=== PATIENT | male | born 1980 | race Caucasian/White ===

== ENCOUNTER 2024-04-16 06:55 | Outpatient (CLI) | payer OTHER ==
[~2024-04-16 06:55] MED LIST: GADOTERATE MEGLUMINE 7.5 MMOL/15 ML VIAL IV ONE; LIDOcaine 1% 30ml preserv. free vial ONE; iohexol 300 MG/1 ML 50ml polymer ONE
[2024-04-16] MEDS ORDERED: LIDOcaine 1% (10mg/ml) 2ml vial ONE (07:02)
== END 2024-04-16 23:59 | disposition home or self-care (01) ==
LOC: RAD 06:55 → EDSTATUS 07:30 → RAD 23:59
PROVIDERS: ATTEND Pediatrics Sports Medicine
DX: M25.552 Pain in left hip (principal); M46.1 Sacroiliitis, not elsewhere classified; M16.12 Unilateral primary osteoarthritis, left hip; M16.11 Unilateral primary osteoarthritis, right hip; M76.02 Gluteal tendinitis, left hip
CPT/HCPCS: 27093; 73722; 77002; A9575; J3490; 73525; Q9967

== ENCOUNTER 2025-09-27 15:57 | Outpatient (CLI) | payer OTHER ==
--- NOTE | 2025-09-27 19:26 | RADIOLOGY REPORT ---
EXAM: MR MRI LUMBAR SPINE, ANGIO ARTHROGRAM (A) CLINICAL HISTORY: SPONDYLOSIS W/O MYELOPATHY OR RADICULOPATHY, LUMBAR REGION COMPARISON: None TECHNIQUE: MRI imaging of the lumbar was performed on a MRI imaging system without intravenous contrast. FINDINGS GENERAL Multilevel disc degeneration. Alignment: Grade 1 retrolisthesis of L3 on L4. Grade 1 retrolisthesis of L4 on L5. Grade 1 retrolisthesis of L5 on S1. Vertebrae: Vertebral body height is well maintained without evidence of a recent compression fracture. Conus: Conus medullaris terminates at the L1-L2 level. T12-L1: The disc configuration is normal. No spinal canal or neural foraminal stenosis. The facet joints are normal. L1-2: The disc configuration is normal. No spinal canal or neural foraminal stenosis. The facet joints are normal. L2-3: The disc configuration is normal. No spinal canal or neural foraminal stenosis. The facet joints are normal. L3-4: Grade 1 retrolisthesis of L3 on L4 by 2.7 mm. Disc desiccation and 3.95 mm disc bulge. Mild spinal canal stenosis. Right subarticular zone stenosis. Mild bilateral foraminal stenosis. Facet arthrosis. L4-5: Grade 1 retrolisthesis of L4 on L5 by 3.3 mm. Disc desiccation. Right foraminal disc extrusion measured 6.1 mm in radial dimension with 2.8 mm of caudal extension. Moderate spinal canal stenosis. Bilateral subarticular zone stenosis with bilateral descending L5 nerve root compression. Moderate bilateral foraminal stenosis. Facet arthrosis. L5-S1: Grade 1 retrolisthesis of L5 on S1 by 3.3 mm. Disc desiccation. Central disc protrusion. Mild spinal canal stenosis. Bilateral subarticular zone stenosis with right descending S1 nerve root compression. Moderate bilateral foraminal stenosis. Facet arthrosis. IMPRESSION: 1. Multilevel disc degeneration. Multilevel spinal canal stenosis, most pronounced and moderate at L4-L5. Multilevel foraminal stenosis, most pronounced and moderate at L4-L5.
== END 2025-09-27 23:59 | disposition home or self-care (01) ==
LOC: MRI02 15:57
PROVIDERS: ATTEND Pediatrics Sports Medicine
DX: M51.17 Intervertebral disc disorders with radiculopathy, lumbosacral region (principal); M54.50 Low back pain, unspecified; M46.1 Sacroiliitis, not elsewhere classified; M25.552 Pain in left hip; M47.27 Other spondylosis with radiculopathy, lumbosacral region; M48.07 Spinal stenosis, lumbosacral region
CPT/HCPCS: 72148